=== PATIENT | male | born 1955 | race Caucasian/White ===

== ENCOUNTER → 2021-11-16 | Outpatient (CLI) | payer BC ==
[~2021-11-16] MED LIST: DIPHENHIST50 MG PO; IBUPROFEN 200200 M1 PO; NORCO5 PO
== END ==
LOC: M.LAB 12:58
PROVIDERS: ATTEND Surgery
DX: Z01.812 Encounter for preprocedural laboratory examination (principal); Z20.822 Contact with and (suspected) exposure to COVID-19

== ENCOUNTER → 2021-11-17 | Day surgery (SDC) | payer BC ==
--- NOTE | ~2021-11-17 | OP ---
[facility] [address] [place] [address] OPERATIVE REPORT Name: BROOKE MOON Room: [facility]..#: [id number] Admission: 11/17/21 Attend Phys: Glenn Moe Discharge: Date of : 59 Report #: [id number] THIS REPORT FOR: cc: Alexandre Coker MD, Khanh MD Patterson,Glenn Bazan MD ~ DATE OF SURGERY: 11/17/2021 PREOPERATIVE DIAGNOSIS: Right inguinal hernia. POSTOPERATIVE DIAGNOSIS: Right inguinal hernia. OPERATION: Laparoscopic repair of right inguinal hernia with mesh. SURGEON: Glenn Moe MD. ANESTHESIA: General. ESTIMATED BLOOD LOSS: Minimal. SPECIMENS: None. DESCRIPTION OF PROCEDURE: After informed consent was obtained, the patient was brought to the operating room and placed supine. SCDs were placed and working, preoperative antibiotics were administered, general anesthesia was induced. The abdomen was prepped and draped in the usual sterile fashion. A 10 mm incision was made below the umbilicus. Fascia was incised and a trocar was placed. Pneumoperitoneum was established. Right and left lower quadrant 5 mm trocar was placed. The patient was placed in the Trendelenburg position. The peritoneum at the right ASIS was scored. Peritoneum was incised and reflected inferiorly. I identified the pubic bone. I identified the cord structures and the iliac and epigastric vessels. The patient had a right indirect inguinal hernia. This was all carefully reduced. I then inserted a large Bard 3DMax mesh. It was tacked to Valerio's ligament with 2 absorbable tacks. I then reapproximated the peritoneum with a running 2-0 V-Loc suture. The area was instilled with 10 mL of 0.5% Marcaine solution. The ports were removed under direct vision. Fascia was closed with a jpshro-is-fdrmt 0 Vicryl. Skin was closed with 4-0 Monocryl. Incisions were dressed with Steri-Strips. COMPLICATIONS: [place] [address] OPERATIVE REPORT Name: BROOKE MOON Room: [facility].#: [id number] Admission: 11/17/21 Attend Phys: Glenn Moe Discharge: Date of : 59 Report #: [id number] DISPOSITION: The patient was taken to recovery in satisfactory condition. By: [id number] Moe MD /meng
[2021-11-17 06:57] LABS: HEMATOCRIT 43.1 % (42.0-52.0); HEMOGLOBIN 14.6 gm/dL (14.0-18.0); MCH 28.6 pg (26.0-34.0); MCHC 33.8 g/dL (28.0-37.0); MCV 84.8 fL (80.0-100.0); MPV 6.8 fl. (7.2-11.1); RBC 5.08 mil/uL (4.50-6.00); RDW-CV 13.8 % (10.5-14.5); WBC 8.8 thou/uL (4.0-11.0)
[2021-11-17 07:04] LABS: CALCIUM 8.5 mg/dL (8.5-10.1); CREATININE 1.1 mg/dL (0.6-1.3); POTASSIUM 3.9 mmol/L (3.5-5.1)
--- NOTE | 2021-11-17 11:24 | EKG ---
[place] [address] ELECTROCARDIOGRAM REPORT Name: BROOKE MOON Room: [facility]#: [id number] Admission: 11/17/21 Attend Phys: Glenn Kwon Discharge: Date of : 59 Date of Service: 11/17/21647 Report #: [id number] THIS REPORT FOR: //name// [facility] Test Date: 2021-11-17 Test Time: 06:48:57 Pat Name: BROOKE MOON Department: Room: Gender: Senior Genetic Counselor: : 1955 Requested By: Jefferson Bañuelos Order Number: [id number] Carolyn MD: John Barcenas Measurements Intervals Cameron Rate: 80 P: 45 DE: 143 QRS: 46 QRSD: 92 T: 31 QT: 366 QTc: 423 Interpretive Statements Sinus rhythm Abnormal R-wave progression, early transition No previous ECG available for comparison Electronically Signed On 11-17-2021 11:24:23 SEWING SUPERVISOR by John Barcenas [email or web address] <ELECTRONICALLY SIGNED> By: John Barcenas MD, [facility] 11/17/21 1124 John Barcenas MD, FACC /EPI
== END | disposition home or self-care (01) ==
LOC: M.SUR
PROVIDERS: Anesthesiology; ATTEND Surgery
DX: K40.90 Unilateral inguinal hernia, without obstruction or gangrene, not specified as recurrent (principal)